=== PATIENT | male | born 1965 | race Caucasian/White ===

== ENCOUNTER 2017-03-21 09:02 | Day surgery (SDC) | payer OTHER ==
[2017-03-15 11:50] LABS: ABSOLUTE EOSINOPHILS # (AUTO) 0.1 10^3/uL (0.0-0.6); ABSOLUTE LYMPHOCYTES (AUTO) 2.7 10^3/uL (0.5-4.7); ABSOLUTE MONOCYTES (AUTO) 0.5 10^3/uL (0.1-1.4); ABSOLUTE NEUT (AUTO) 3.8 10^3/uL (1.7-8.2); BASOPHILS % (AUTO) 0.5 % (0-2); EOSINOPHILS % (AUTO) 1.3 % (0-6); HEMATOCRIT 44.1 % (37.9-51.0); HEMOGLOBIN 15.8 g/dL (13.5-17.0); HGB HCT DIFFERENCE 3.3; LYMPHOCYTES % (AUTO) 38.4 % (13-45); MEAN CORPUSCULAR HEMOGLOBIN 29.8 pg (27.0-33.4); MEAN CORPUSCULAR HGB CONC 35.8 g/dL (32.0-36.0); MEAN CORPUSCULAR VOLUME 83 fl (80-97); MONOCYTES % (AUTO) 6.8 % (3-13); RED BLOOD COUNT 5.29 10^6/uL (4.35-5.55); RED CELL DISTRIBUTION WIDTH 13.9 % (11.5-14.0); WHITE BLOOD COUNT 7.1 10^3/uL (4.0-10.5)
[2017-03-15 12:33] LABS: ANION GAP 12 (5-19); BLOOD UREA NITROGEN 13 mg/dL (7-20); CALCIUM 9.7 mg/dL (8.4-10.2); CARBON DIOXIDE 24 mmol/L (22-30); CHLORIDE 105 mmol/L (98-107); CREATININE RESULT 0.89 mg/dL (0.52-1.25); GLUCOSE 93 mg/dL (75-110); POTASSIUM 4.5 mmol/L (3.6-5.0); SODIUM 140.8 mmol/L (137-145)
[2017-03-15 12:42] LABS: APPEARANCE,URINE CLEAR; BILIRUBIN,URINE NEGATIVE (NEGATIVE); GLUCOSE, URINE NEGATIVE (NEGATIVE); KETONES,URINE NEGATIVE (NEGATIVE); LEUKOCYTE ESTERASE,URINE TRACE (NEGATIVE); NITRITE,URINE NEGATIVE (NEGATIVE); PROTEIN,URINE NEGATIVE (NEGATIVE); URINE SPECIFIC GRAVITY 1.017; UROBILINOGEN,URINE NEGATIVE mg/dL (<2.0)
[2017-03-15 12:44] LABS: RBC,URINE 0-1 /HPF
[2017-03-15 12:45] LABS: BACTERIA,URINE TRACE /HPF
[~2017-03-21 09:02] MED LIST: BUPIVACAINE HCL 0.5 % INJ/PF 30 ML SDV ONE; CEFAZOLIN 2 GM/D5W RTU 2 GM/50 ML RTUPB IV PRN; EPINEPHRINE INJ/PF 1 MG/1 ML AMPULE ONE; LACTATED RINGERS 1000 ML IV PRN; LIDOCAINE 0.5% INJ-PF (5 MG/ML) 50 ML SDV SUBCUT PRN
[2017-03-21] MEDS ORDERED: FENTANYL CITRATE INJ/PF 100 MCG/2 ML AMPUL ONE (11:18)
[2017-03-21] MEDS ORDERED: PROPOFOL INJ 200 MG/20 ML VIAL IV ONE (11:19)
[2017-03-21] MEDS ORDERED: MIDAZOLAM 2 MG/2 ML INJ ONE (11:19)
[2017-03-21] MEDS ORDERED: ONDANSETRON HCL INJ/PF 4 MG/2 ML SDV ONE (11:19)
[2017-03-21] MEDS ORDERED: HYDROMORPHONE HCL INJ/PF 2 MG/ML AMPULE ONE (11:20)
[2017-03-21] MEDS ORDERED: ACETAMINOPHEN 100 ML IV ONE (11:20)
[2017-03-21] MEDS ORDERED: MORPHINE SULFATE 10 MG/ML INJ IV PRN (12:07)
[2017-03-21] MEDS ORDERED: FENTANYL CITRATE INJ/PF 100 MCG/2 ML AMPUL IV PRN ×3 (12:07)
[2017-03-21] MEDS ORDERED: MEPERIDINE HCL/PF INJ 25 MG/1 ML DISP.SYRIN IV PRN (12:07)
[2017-03-21] MEDS ORDERED: PROMETHAZINE HCL INJ 25 MG/1 ML VIAL IV PRN (12:07)
[2017-03-21] MEDS ORDERED: ONDANSETRON HCL INJ/PF 4 MG/2 ML SDV IV PRN (12:07)
[2017-03-21] MEDS ORDERED: DIPHENHYDRAMINE HCL 50 MG/ML VIAL IV PRN (12:07)
[2017-03-21] MEDS: FENTANYL CITRATE INJ/PF 100 MCG/2 ML AMPUL ONE ×2 (14:10→14:15)
--- NOTE | 2017-03-21 14:28 | Operative Report ---
Operative Report DATE OF SURGERY: 03/21/17 PREOPERATIVE DIAGNOSIS: Right hip labral tear POSTOPERATIVE DIAGNOSIS: Same with chondral labral tear OPERATION: Right hip arthroscopy with labral debridement and chondroplasty of the chondral labral tear SURGEON: COURT CLAYTON ANESTHESIA: GA TISSUE REMOVED OR ALTERED: None COMPLICATIONS: None ESTIMATED BLOOD LOSS: 20 mL INTRAOPERATIVE FINDINGS: As above PROCEDURE: My right hip intro Patient was brought to the operating room. The patient was induced and intubated in supine position. IV antibiotics were given prior to entering the OR. Boots were placed on both lower extremities. Peroneal post was applied and the patient was brought down to the perineal post. Both extremities were securing and the hip distraction system. At this point traction was placed in both lower extremities. C-arm was used to guide us and allow us to dislocate the right hip successfully. Once sedated gross traction and then gentle traction and confirm a dislocation under C-arm I started the time her the right lower extremity was taken off of gross traction. This point the right hip was prepped and draped in a normal sterile surgical fashion. Timeout was done identifying the left hip as the correct site. With the use of C-arm I placed a spinal needle and the anticipated anterolateral portal site. Once I felt that I piercing the capsule, I inflated the capsule with air using a 60 mL sterile syringe, this was showing proper placement intra-articularly. I this point I placed a nitinol wire and removed the spinal needle. I proceeded to dilate appropriately after using a scalpel to do a incision establish a my portal site. Camera then was introduced and under direct visualization proceeded to use a spinal needle to status my anterior portal site. I marked the ASIS and the midline in the midportion of the thigh to make sure that we were on the lateral aspect of the spine to avoid any neurovascular structures. Once I pursue Sloughing directly visualize a spinal needle and proceeded to use the same technique of placing nitinol wire, removed the needle and then proceeded to dilate the capsule after establishing the portal site with a scalpel. At this point I proceeded to do my arthrotomy using a retractable Campo blade. I proceeded to use switching sticks to changed my camera to the anterior portal and allowing to do complete my arthrotomy from the anterolateral portal using the retractable Campo blade. At this point once the arthrotomy was completed I proceeded to do my diagnostic arthroscopy. Patient noted to have tear mostly at the labral chondral junction. There is a flap of cartilage. There is no complete detachment of the labrum off of the rim of acetabulum. I proceeded to use a 4.0 curved shaver to then do a debridement of the labral tear and I used the radiofrequency ablator to trim the edges and trimmed some of the cartilage. I also used a ring curette to remove some of the cartilage as well. Final pictures were taken showing my debridement and cleaning of the labral tear. I did a minor abrasion chondroplasty for the chondral portion of the cartilage tear. I released the traction and the head sat well into the socket. I do not see an overt obvious cam lesion and with the type of tear that he has did not think that he requires a femoral plasty so we proceeded to remove the instruments and closed the 2 portal sites with 3-0 nylon. The incisions were covered with Xeroform 4 x 4 dressing and ABD pad. This was secured with a Medipore tape. Patient was then extubated and sent to PACU in a stable condition end of dictation
[2017-03-21] MEDS: MORPHINE SULFATE 10 MG/ML INJ ONE ×3 (14:30→14:40)
--- NOTE | 2017-03-21 14:31 | PDOC DISCHARGE SUMMARY ---
Discharge Summary (SDC) - Discharge Final Diagnosis: Status post right hip arthroscopic labral debridement and abrasive chondroplasty Date of Surgery: 03/21/17 Discharge Date: 03/21/17 Condition: Good Treatment or Instructions: Patient instructed to follow up in 10-14 days. Patient instructed to keep dressing dry clean and intact for 4 days and then allowed to remove. At that point patient can shower and apply Band-Aids as needed. Patient can do range of motion as tolerated. Avoid external rotation of the operative hip. Nonweightbearing with crutches 6 weeks Patient instructed to call the office if patient develops fevers chills redness and drainage from the surgical sites. Prescriptions: Oxycodone HCl/Acetaminophen [Percocet 5-325 mg Tablet] 1 - 2 tab PO ASDIR PRN # 60 tablet PRN Reason: Discharge Diet: As Tolerated Respiratory Treatments at Home: Deep Breathing/Coughing Discharge Activity: No Lifting/Push/Pulling, Slowly Increase Activity Home Care Assistance: None Needed Adaptive Devices on Discharge: Axillary Crutches Report the Following to Your Physician Immediately: Shortness of Breath, Vomiting, Increase in Pain, Fever over 101 Degrees, Unusual Bleeding, Redness, Swelling, Warmth, Increased Soreness, Drainage-Yellow, Drainage-Garcia, Drainage- Green, Drainage-Foul Smelling
[2017-03-21] MEDS ORDERED: OXYCODONE-ACETAMINOPHEN 5-325 MG TABLET PO PRN ×2 (14:40)
[2017-03-21] MEDS ORDERED: SUCCINYLCHOLINE CHLORIDE INJ 200 MG/10 ML VIAL ONE (14:48)
[2017-03-21] MEDS ORDERED: DEXAMETHASONE SOD PHOSPHATE INJ 4 MG/1 ML VIAL ONE (14:48)
[2017-03-21] MEDS ORDERED: KETOROLAC TROMETHAMINE 60 MG/2 ML SDV ONE (14:48)
--- NOTE | 2017-03-21 15:06 | RADIOLOGY REPORT (SQ) ---
EXAM DESCRIPTION: HIP IN OPERATING RM COMPLETED DATE/TIME: 03/21/2017 2:36 pm REASON FOR STUDY: RT HIP ARTHROSCOPY ASSISTED WITH FLUORO IN OR M24.151 OTHER ARTICULAR CARTILAGE D ISORDERS, RIGHT HIP COMPARISON: None. FLUOROSCOPY TIME: 1 minute. 4 images saved to PACS. TECHNIQUE: Intra-operative images acquired during surgical procedure to evaluate progress. NUMBER OF IMAGES: 4 images. LIMITATIONS: None. FINDINGS: Images of the hip acquired during procedure. IMPRESSION: IMAGE(S) OBTAINED DURING PROCEDURE. COMMENT: Quality ID [id number]: Final reports for procedures using fluoroscopy that document radiation exp osure indices, or exposure time and number of fluorographic images (if radiation exposure indices are not available) Please consult full operative report of the attending physician for description of the procedure. TECHNICAL DOCUMENTATION: JOB ID: [id number] [email or web address]- All Rights Reserved
[2017-03-21 17:22] VITALS: BP 141/91
== END 2017-03-21 16:25 | disposition home or self-care (01) ==
LOC: OROUT 09:02 → EDBD 11:45 → OROUT 16:25
PROVIDERS: ATTEND Orthopaedic Surgery
PROC: 0SB94ZZ Excision of Right Hip Joint, Percutaneous Endoscopic Approach (ICD-10-PCS; principal; 2017-03-21 11:45)
DX: M24.151 Other articular cartilage disorders, right hip (principal); M25.851 Other specified joint disorders, right hip; M25.551 Pain in right hip; E78.00 Pure hypercholesterolemia, unspecified; Z88.8 Allergy status to other drugs, medicaments and biological substances; Z79.899 Other long term (current) drug therapy
CPT/HCPCS: 36415; 85025; 80048; 81001; 73501; 29862; J2250; J1100; J0171; J1885; J3010; J2270; J1170; J0330; J2405; J2704; J0690; J0131; 01630

== ENCOUNTER 2018-05-26 08:08 | Day surgery (SDC) | payer OTHER ==
[~2018-05-26 08:08] MED LIST changes: -BUPIVACAINE HCL 0.5 % INJ/PF 30 ML SDV ONE; -CEFAZOLIN 2 GM/D5W RTU 2 GM/50 ML RTUPB IV PRN; -EPINEPHRINE INJ/PF 1 MG/1 ML AMPULE ONE; -LACTATED RINGERS 1000 ML IV PRN; -LIDOCAINE 0.5% INJ-PF (5 MG/ML) 50 ML SDV SUBCUT PRN; +PROPOFOL INJ 200 MG/20 ML VIAL IV ONE
[2018-05-26 11:07] VITALS: BP 135/78
--- NOTE | 2018-05-26 14:03 | Operative Report ---
Operative Report DATE OF SURGERY: 05/26/18 Operative Report: The risks, benefits and alternatives of the procedure including the risk of bleeding, perforation requiring surgery have been explained to the patient in detail and informed consent has been obtained. Patient is taken back to the endoscopy suite and placed in the left, lateral decubital position. Timeout was called. Propofol medication is administered. Rectal examination is done which did not reveal any masses, tears or fissures. An Olympus videoscope was introduced into the patient's rectum. The scope was then carefully advanced all the way to the cecum. The cecum was identified by the usual anatomical landmarks including the ileocecal valve as well as the appendiceal office. Photodocumentation is obtained. The scope was then sequentially pulled back via the various segments of the colon including the ascending colon, hepatic flexure, transverse colon, splenic flexure, descending colon and finally into the rectosigmoid portions of the colon. Retroflexion maneuver was performed. PREOPERATIVE DIAGNOSIS: Colorectal cancer screening POSTOPERATIVE DIAGNOSIS: Left-sided colon inflammation status post biopsy. Internal hemorrhoids OPERATION: Colonoscopy with biopsy SURGEON: PILLO COOL ANESTHESIA: LMAC TISSUE REMOVED OR ALTERED: As noted above. COMPLICATIONS: None. ESTIMATED BLOOD LOSS: None. INTRAOPERATIVE FINDINGS: As noted above. PROCEDURE: Patient tolerated the procedure well. No immediate postprocedure complications are noted. Patient discharged in good condition. Discharge date 05/26/2018. Discharge diet: Regular. Discharge activity: Regular. 2-3-week follow-up to discuss findings. Patient is instructed to call the office or proceed to the emergency room should there be any further problems or questions. I will wait on the pathology.
== END 2018-05-26 11:00 | disposition home or self-care (01) ==
LOC: END 08:08
PROVIDERS: ATTEND Internal Medicine Gastroenterology
DX: Z12.11 Encounter for screening for malignant neoplasm of colon (principal); K52.9 Noninfective gastroenteritis and colitis, unspecified; K64.8 Other hemorrhoids; E78.5 Hyperlipidemia, unspecified; Z88.8 Allergy status to other drugs, medicaments and biological substances
CPT/HCPCS: 45380; 88305 ×2; J2704; 811